=== PATIENT | male | born 1995 | race Caucasian/White ===

== ENCOUNTER 2024-04-12 15:12 | Emergency (ER) | payer OTHER ==
[2024-04-12] MEDS ORDERED: Lidocaine 1% w/Epinephrine 1:100K 20 ML VIAL ONE (15:51)
[2024-04-12] MEDS ORDERED: Bacitracin 1 PK ONE (15:51)
[2024-04-12 16:19] LABS: #Basophils 0.1 thou/uL (0.0-0.2); #Eosinophils 0.1 thou/uL (0.0-0.7); #Lymphocytes 1.2 thou/uL (1.20-3.40); #Monocytes 0.4 thou/uL (0.11-0.59); #Neutrophils 4.7 thou/uL (1.40-6.50); %Basophils 0.9 % (0.0-1.0); %Eosinophils 1.7 % (0.0-10.0); %Lymphocytes 18.9 % (21.0-51.0); %Monocytes 6.2 % (0.0-10.0); %Neutrophils 72.4 % (42.0-75.0); Hematocrit 45.7 % (42.0-52.0); Hemoglobin 15.1 g/dL (14.0-18.0); Mean Corpuscular Hemoglobin 30.1 pg (27.0-31.0); Mean Corpuscular Volume 91.1 fl (78.0-98.0); Mean Platelet Volume 7.6 fL (7.4-10.4); Platelet Count 206 10x3/uL (130-400); RBC Distribution Width 11.3 % (11.5-14.5); Red Blood Cell (RBC) Count 5.02 mill/uL (4.70-6.10); White Blood Cell (WBC) Count 6.4 10x3/uL (4.8-10.8)
[2024-04-12 16:31] LABS: Prothrombin Time 12.7 sec (12.0-14.7)
[2024-04-12 16:32] LABS: PTT 28.3 sec (22.9-36.1)
[2024-04-12 16:33] LABS: ALT (SGPT) 17 U/L (8-55); AST (SGOT) 16 U/L (5-34); Albumin 4.3 g/dL (3.5-5.0); Alkaline Phosphatase 80 U/L (40-110); Anion Gap 14 mmol/L (10-20); BUN (Urea Nitrogen) 13 mg/dL (8.9-20.6); Bilirubin, Total 0.4 mg/dL (0.2-1.2); Calc. Creatinine Clearance 0 mL/min (70-130); Calcium 9.1 mg/dL (7.8-10.44); Carbon Dioxide 26 mmol/L (22-29); Chloride 105 mmol/L (98-107); Estimated GFR 90; Globulin 2.4 g/dL (2.4-3.5); Glucose 94 mg/dL (70-105); Potassium 4.2 mmol/L (3.5-5.1); Protein, Total 6.7 g/dL (6.0-8.3); Sodium 141 mmol/L (136-145)
[2024-04-12 16:34] LABS: Troponin I Less than 0.010 ng/mL (< 0.028)
[2024-04-12 16:35] LABS: D-Dimer Test 0.27 mcg/mL (0.27-0.43)
[2024-04-12] MEDS ORDERED: Ketorolac Tromethamine 30 MG (1 mL) VIAL ONE (17:15)
[2024-04-12] MEDS ORDERED: diphenhydrAMINE 50 MG/ML VIAL ONE (17:15)
[2024-04-12] MEDS ORDERED: Prochlorperazine 10 MG/2 ML VIAL ONE (17:15)
[2024-04-12] MEDS ORDERED: Acetaminophen 500 MG TAB ONE (17:15)
== END 2024-04-12 17:45 ==
LOC: MADERS 15:12
DX: S01.81XA Laceration without foreign body of other part of head, initial encounter (principal); S44 Injury of nerves at shoulder and upper arm level; R07.9 Chest pain, unspecified; R55 Syncope and collapse; F17.210 Nicotine dependence, cigarettes, uncomplicated; W19.XXXA Unspecified fall, initial encounter
CPT/HCPCS: 12013; 70450; 71045; 80053; 84484; 85025; 85379; 85610; 85730; 93005; 94760; 96374; 96375; J0780; J1200; J1885